=== PATIENT | female | born 1980 | race Caucasian/White ===

== ENCOUNTER 2024-11-04 16:40 | Emergency (ER) | payer BC ==
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
[2024-11-04 17:12] VITALS: RESP 16; TEMP 99.4
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
[2024-11-04 18:03] LABS: Appearance,Urine Clear (Clear); Bacteria,Urine Rare /hpf; Bilirubin,Urine Negative (Negative); Blood,Urine Moderate (Negative); Color,Urine Colorless; Glucose,Urine (UA) Negative (Negative); Ketones,Urine 1+ (Negative); Leukocyte Esterase,Urine Negative (Negative); Mucus,Urine Rare /hpf; Nitrite,Urine Negative (Negative); PH, Urine 5.5 (5.0-8.0); Protein,Urine Negative (Negative); RBC,Urine 7 /hpf (0-5); Specific Gravity,Urine 1.005 (1.001-1.035); Squamous Epithelial Cell,Urine 1 /hpf (0-4); Urobilinogen,Urine <2.0 mg/dL (<2.0); WBC,Urine 2 /hpf (0-5)
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
[2024-11-04 18:57] VITALS: BP 175/94; PULSE 111
== END 2024-11-04 19:00 | disposition home or self-care (01) ==
LOC: EC 16:40
DX: S09.90XA Unspecified injury of head, initial encounter (principal); Y01.XXXA Assault by pushing from high place, initial encounter
CPT/HCPCS: 70450; 71045; 72125; 72170; 81001; 81025; 99284